=== PATIENT | male | born 1960 | race Caucasian/White ===

== ENCOUNTER 2016-10-26 03:18 | Emergency (ER) | payer MEDICAID ==
[2016-10-26] MEDS ORDERED: ONDANSETRON HCL INJ/PF 4 MG/2 ML SDV IV ONE (03:49)
--- NOTE | 2016-10-26 03:49 | ER Document Report ---
ED General - General Stated Complaint: ABDOMINAL PAIN Time Seen by Provider: 10/26/16 03:26 - HPI Notes: Patient is a 56-year-old male with a history of stage IV cirrhosis, diabetes who presents the ED complaining of abdominal pain 2 days and black stool 2 days. Patient also has associated nausea without any vomiting. Patient states that he still eating and drinking without any difficulties and without any changes in his discomfort. Patient states that he is having bilateral lower abdominal pain. [facility]. Patient states that he is primarily concerned with his black stool and his abdominal pain. Patient states that he has not needed any procedures done to the veins in his esophagus over the last 2 years that they have been fairly stable. 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 Pt states that he is still having normal BM's otherwise and is urinating without any difficulties. Patient states that the pain does not radiate and is described as sharp and achy. Patient admits to smoking but denies any other illicit drug use. Denies any headache, fever, changes in vision/speech/mentation/hearing, URI, sore throat, chest pain, palpitations, syncope, cough, shortness of breath, wheeze, dyspnea, urinary retention, dysuria , hematuria, loss of control of bowel or bladder, numbness/tingling, saddle anesthesia, muscle paralysis/weakness, or rash. - Related Data Allergies/Adverse Reactions: Penicillins Allergy (Verified 10/26/16 04:09) Past Medical History - Social History Smoking Status: Current Every Day Smoker Family History: Reviewed & Not Pertinent Review of Systems - Review of Systems Notes: REVIEW OF SYSTEMS: CONSTITUTIONAL : Denies fever, chills, or sweats. Denies recent illness. EENT: Denies eye, ear, throat, or mouth pain or symptoms. Denies nasal or sinus congestion or discharge. Denies throat, tongue, or mouth swelling or difficulty swallowing. CARDIOVASCULAR: Denies chest pain. Denies palpitations or racing or irregular heart beat. Denies ankle edema. RESPIRATORY: Denies cough, cold, or chest congestion. Denies shortness of breath, difficulty breathing, or wheezing. GASTROINTESTINAL: see hpi GENITOURINARY: Denies difficulty urinating, painful urination, burning, frequency, blood in urine, or discharge. MUSCULOSKELETAL: Denies back or neck pain or stiffness. Denies joint pain or swelling. SKIN: Denies rash, lesions or sores. NEUROLOGICAL: Denies confusion or altered mental status. Denies passing out or loss of consciousness. Denies dizziness or lightheadedness. Denies headache. Denies weakness or paralysis or loss of use of either side. Denies problems with gait or speech. Denies sensory loss, numbness, or tingling. ALL OTHER SYSTEMS REVIEWED AND NEGATIVE. Dictation was performed using [employer] voice recognition software Physical Exam - Vital signs Vitals: Temp Resp BP Pulse Ox 97.5 F 20 138/82 H 97 10/26/16 03:23 10/26/16 03:23 10/26/16 03:23 10/26/16 03:23 Notes: PHYSICAL EXAMINATION: GENERAL: Well-appearing, well-nourished and in no acute distress. HEAD: Atraumatic, normocephalic. EYES: Pupils equal round and reactive to light, extraocular movements intact, sclera anicteric, conjunctiva are normal. ENT: Nares patent and without discharge. oropharynx clear without exudates. No tonsilar hypertrophy or erythema. Moist mucous membranes. No sinus tenderness. NECK: Normal range of motion, supple without lymphadenopathy. No rigidity. LUNGS: Breath sounds clear to auscultation bilaterally and equal. No wheezes rales or rhonchi. HEART: Regular rate and rhythm without murmurs, rubs, gallops. ABDOMEN: Soft, nondistended abdomen. No guarding, no rebound. No masses appreciated. Normal bowel sounds present. No CVA tenderness bilaterally. + tenderness to the lower quadrant and epigastric region. No obvious varices on abdomen. Musculoskeletal: LE's b/l: FROM to passive/active. Strength 5+/5. Extremities: 1+ edema b/l prox to mid lower leg. Peripheral pulses 2+. Capillary refill less than 3 seconds. NEUROLOGICAL: MMSE intact. Cranial nerves grossly intact. Normal speech, normal gait. Normal sensory, motor exams PSYCH: Normal mood, normal affect. SKIN: Warm, Dry, normal turgor, no rashes or lesions noted. Course - Re-evaluation Re-evalutation: 10/26/16 06:11 Patient is an afebrile, well-hydrated, 56-year-old male who presents the ED with abdominal pain and chronic cirrhosis. Vitals are stable. PE otherwise unremarkable at this time. CBC, CMP, urinalysis, lipase, cxr, Hemoccult all unremarkable for acute pathology. See CT scan results. Recommended gallbladder ultrasound to further evaluate for any cholecystitis based on CT, the patient declined stating that he just wants to go home. Patient is aware of the risks and benefits of his decision including worsening infection and/or . Patient signed out AMA after review of the rest of his results. Low suspicion/risk for acute appendicitis, bowel obstruction, perforated diverticulitis, incarcerated hernia, pancreatitis, perforated ulcer, peritonitis , sepsis, or other systemic emergent condition at this time aside from the questionable cholecystitis. Patient is aware that his condition can change from initial presentation and he needs to monitor symptoms closely and seek medical attention if any acute changes. I will send him home with prescription for Zofran and meloxicam. Toradol 15 mg given IV today along with 1 L normal saline, zofran, and 0.5mg ativan. Conservative measures otherwise for symptoms. Recheck with PCM in 2-3 days. Patient states that he does have a follow-up coming on Thursday with his GI doctor. Patient also states that he is scheduled for an ultrasound on . Return to the ED with any worsening/ concerning symptoms otherwise as reviewed in discharge. Patient is in agreement. Reviewed case with Dr. Acosta who is in agreement with discharge/ plan. - Vital Signs Vital signs: Temp Pulse Resp BP Pulse Ox 97.5 F 13 138/82 H 98 10/26/16 03:23 10/26/16 04:03 10/26/16 03:25 10/26/16 04:03 - Laboratory Result Diagrams: 10/26/16 03:28 10/26/16 04:00 Laboratory results interpreted by me: 10/26/16 10/26/16 03:28 04:00 RDW 18.8 H Plt Count 102 L Chloride 113 H BUN 5 L Total Bilirubin 1.8 H Direct Bilirubin 0.5 H AST 69 H Discharge - Discharge Clinical Impression: Abdominal pain Qualifiers: Abdominal location: generalized Qualified Code(s): R10.84 - Generalized abdominal pain Cirrhosis Qualifiers: Hepatic cirrhosis type: alcoholic cirrhosis Ascites presence: with ascites Qualified Code(s): K70.31 - Alcoholic cirrhosis of liver with ascites Condition: Stable Disposition: HOME, SELF-CARE Instructions: Abdominal Pain ([facility]), Antinausea Medication ([facility]), Gallbladder Disease ([facility]), Low-Fat Diet ([facility]) Additional Instructions: Maintain adequate fluid and food intake Take home medications as directed Monitor symptoms closely for any acute changes Recheck with Dr. Boyce on Thursday Return to the ED with any worsening symptoms and/or development of fever, headache, chest pain, palpitations, syncope, shortness of breath, trouble breathing, abdominal pain, n/v/d, blood in stool/urine, loss of control of bowel /bladder, urinary retention, muscle weakness/paralysis, saddle anesthesia, numbness/tingling, or other worsening symptoms that are concerning to you. Prescriptions: Meloxicam 7.5 mg PO BID PRN #20 tablet PRN Reason: Ondansetron [Zofran Odt 4 mg Tablet] 1 - 2 tab PO Q4H PRN #15 tab.rapdis PRN Reason: For Nausea/Vomiting Forms: Elevated Blood Pressure Referrals: HEATHER BOYCE MD [NO LOCAL MD] - 10/27/16
[2016-10-26 03:54] LABS: ABSOLUTE EOSINOPHILS # (AUTO) 0.1 10^3/uL (0.0-0.6); ABSOLUTE LYMPHOCYTES (AUTO) 1.5 10^3/uL (0.5-4.7); ABSOLUTE MONOCYTES (AUTO) 0.5 10^3/uL (0.1-1.4); BASOPHILS % (AUTO) 0.6 % (0-2); EOSINOPHILS % (AUTO) 1.9 % (0-6); HEMATOCRIT 46.2 % (37.9-51.0); HEMOGLOBIN 15.8 g/dL (13.5-17.0); HGB HCT DIFFERENCE 1.2; LYMPHOCYTES % (AUTO) 29.2 % (13-45); MEAN CORPUSCULAR HEMOGLOBIN 31.3 pg (27.0-33.4); MEAN CORPUSCULAR HGB CONC 34.3 g/dL (32.0-36.0); MEAN CORPUSCULAR VOLUME 91 fl (80-97); MONOCYTES % (AUTO) 9.7 % (3-13); RED BLOOD COUNT 5.06 10^6/uL (4.35-5.55); RED CELL DISTRIBUTION WIDTH 18.8 % (11.5-14.0); SEGMENTED NEUTROPHILS % (AUTO) 58.6 % (42-78); WHITE BLOOD COUNT 5.1 10^3/uL (4.0-10.5)
[2016-10-26] MEDS ORDERED: LORAZEPAM INJ 2 MG/1 ML VIAL IV ONE (04:17)
[2016-10-26 04:22] LABS: APPEARANCE,URINE CLEAR; BILIRUBIN,URINE NEGATIVE (NEGATIVE); GLUCOSE, URINE NEGATIVE (NEGATIVE); KETONES,URINE NEGATIVE (NEGATIVE); LEUKOCYTE ESTERASE,URINE NEGATIVE (NEGATIVE); NITRITE,URINE NEGATIVE (NEGATIVE); PROTEIN,URINE NEGATIVE (NEGATIVE); URINE SPECIFIC GRAVITY 1.004; UROBILINOGEN,URINE NEGATIVE mg/dL (<2.0)
[2016-10-26 04:36] LABS: ALANINE AMINOTRANSFERASE 55 U/L (21-72); ALBUMIN 3.5 g/dL (3.5-5.0); ALKALINE PHOSPHATASE 77 U/L (38-126); ANION GAP 6 (5-19); ASPARTATE AMINO TRANSFERASE 69 U/L (17-59); BILIRUBIN,DIRECT 0.5 mg/dL (0.0-0.4); BILIRUBIN,TOTAL 1.8 mg/dL (0.2-1.3); BLOOD UREA NITROGEN 5 mg/dL (7-20); CALCIUM 9.3 mg/dL (8.4-10.2); CARBON DIOXIDE 22 mmol/L (22-30); CHLORIDE 113 mmol/L (98-107); CREATININE RESULT 0.62 mg/dL (0.52-1.25); GLUCOSE 99 mg/dL (75-110); LIPASE 72.6 U/L (23-300); POTASSIUM 3.7 mmol/L (3.6-5.0); SODIUM 141.4 mmol/L (137-145); TOTAL PROTEIN 6.6 g/dL (6.3-8.2)
[2016-10-26 05:00] LABS: PROTHROMBIN TIME 14.1 SEC (11.4-15.4)
--- NOTE | 2016-10-26 05:40 | RADIOLOGY REPORT (SQ) ---
EXAM DESCRIPTION: CT ABD/PELVIS WITH IV ONLY COMPLETED DATE/TIME: 10/26/2016 5:04 am REASON FOR STUDY: abdominal pain, h/o stage 4 cirrhosis . Abdominal pain and black stools x2 days. Nausea. Lower quadrants abdominal pain. COMPARISON: Abdominal series 06/11/2010. TECHNIQUE: CT scan of the abdomen and pelvis performed using helical scanning technique with dynamic intravenous contrast injection. No oral contrast. Images reviewed with lung, soft tissue, and bone windows. Reconstructed coronal and sagittal MPR images reviewed. Delayed images for evaluation of the urinary system also acquired. All images stored on PACS. All CT scanners at this facility use dose modulation, iterative reconstruction, and/or weight based d osing when appropriate to reduce radiation dose to as low as reasonably achievable (ALARA). [facility]: Dose Right [facility]: CareDose [facility]: Dose Right [facility]: Teradose 4D [facility]: [employer] CONTRAST TYPE AND DOSE: contrast/concentration: Isovue 370.00 mg/ml; Total Contrast Delivered: 100.0 ml; Total Saline Delivered: 72.0 ml RENAL FUNCTION: Creatinine 0.62 RADIATION DOSE: Up-to-date CT equipment and radiation dose reduction techniques were employed. CTDIv ol: 20.4 - 21.1 mGy. DLP: 2407 mGy-cm.. LIMITATIONS: Streak artifact from the bilateral hip prosthesis. FINDINGS: LOWER CHEST: No consolidation or pleural effusion. Coronary arteries calcifications are n oted. LIVER: Nodular contour of the liver, consistent with cirrhosis. There is periportal adenopathy with lymph nodes measuring up to 13 mm in short axis. SPLEEN: Enlarged measuring 16.5 cm in craniocaudal dimension. PANCREAS: No significant calcifications. No adjacent inflammation or peripancreatic fluid collections . Pancreatic duct not dilated. GALLBLADDER: The gallbladder is partially distended. There is cholelithiasis. There is gallbladder wall thickening. ADRENAL GLANDS: No significant masses or asymmetry. RIGHT KIDNEY AND URETER: There is a 1.6 cm cortical exophytic cyst at the inferior pole of the right kidney. No significant calcifications. No hydronephrosis or hydroureter. LEFT KIDNEY AND URETER: No significant calcifications. No hydronephrosis or hydroureter. AORTA AND VESSELS: No abdominal aortic aneurysm. There are multiple mesenteric collaterals. There i s recanalization of the umbilical ligament. RETROPERITONEUM: No retroperitoneal hemorrhage or masses. BOWEL AND PERITONEAL CAVITY: No dilated bowel loops or inflammatory changes. No free fluid or free a ir. APPENDIX: Not visualized. PELVIS: There is streak artifact from the bilateral hip prostheses. The urinary bladder is distended . No obvious mass or free fluid. ABDOMINAL WALL: There is diastasis recti. There is a small umbilical hernia with a segment of nondil ated bowel protruding into the hernia defect. BONES: The patient is status post total bilateral hip replacement. Mild multilevel degenerative guillaume ges are seen in the spine. IMPRESSION: Cirrhosis with splenomegaly and portal hypertension. Mild periportal adenopathy. Cholelithiasis. Gallbladder wall thickening, may be secondary to underdistention, adjacent liver dis ease or acute cholecystitis. Please correlate with clinical exam/laboratory values. Small umbilical hernia with a segment of nondilated bowel protruding into the hernia defect. TECHNICAL DOCUMENTATION: JOB ID: [id number] OH-64 Quality ID # [id number]: Final reports with documentation of one or more dose reduction techniques (e.g., Au tomated exposure control, adjustment of the mA and/or kV according to patient size, use of iterative reconstruction technique) 2010 [employer]- All Rights Reserved
--- NOTE | 2016-10-26 05:45 | RADIOLOGY REPORT (SQ) ---
EXAM DESCRIPTION: CHEST PA/LAT COMPLETED DATE/TIME: 10/26/2016 5:19 am REASON FOR STUDY: epigastric/abdominal pain COMPARISON: Abdominal series 06/11/2010, CT abdomen and pelvis 10/26/2016. EXAM PARAMETERS: NUMBER OF VIEWS: two views TECHNIQUE: Digital Frontal and Lateral radiographic views of the chest acquired. RADIATION DOSE: NA LIMITATIONS: none FINDINGS: LUNGS AND PLEURA: No consolidation, pneumothorax or pleural effusion. MEDIASTINUM AND HILAR STRUCTURES: No masses or contour abnormalities. HEART AND VASCULAR STRUCTURES: Heart normal size. No evidence for failure. BONES: No acute findings. HARDWARE: None in the chest. IMPRESSION: No acute radiographic finding in the chest. TECHNICAL DOCUMENTATION: JOB ID: [id number] OH-64 2010 [employer]- All Rights Reserved
[2016-10-26] MEDS ORDERED: KETOROLAC TROMETHAMINE INJ/PF 30 MG/1 ML SDV IV ONE (06:10)
[2016-10-26 06:51] VITALS: BP 132/72
== END 2016-10-26 06:51 | disposition home or self-care (01) ==
LOC: ER 03:18
DX: K70.31 Alcoholic cirrhosis of liver with ascites (principal); R10.84 Generalized abdominal pain; E11.9 Type 2 diabetes mellitus without complications; R19.5 Other fecal abnormalities; R11.0 Nausea; F17.200 Nicotine dependence, unspecified, uncomplicated; Z53.20 Procedure and treatment not carried out because of patient's decision for unspecified reasons
CPT/HCPCS: 99284; 36415; 82140; 83690; 83735; 85025; 85610; 82272; 80053; 81001; 71020; 74177; J1885; J2060; J2405

== ENCOUNTER 2017-05-15 12:15 | Emergency (ER) | payer MEDICAID ==
[2017-05-15] MEDS ORDERED: NORMAL SALINE 1000 ML 500 ML IV ONE (12:39)
[2017-05-15] MEDS ORDERED: HYDROCODONE/ACETAMINOPHEN 5-325 MG TABLET PO ONE (12:40)
--- NOTE | 2017-05-15 12:42 | ER Document Report ---
ED Medical Screen (RME) - General Chief Complaint: Post Surgical Pain Stated Complaint: RIGHT FOOT PAIN Notes: RME DISCLOSURE I have seen this patient as part of a Rapid Medical Evaluation and, if applicable, placed any initially appropriate orders. The patient will be seen and fully evaluated, including a full history and physical exam, by a provider ( in Main ED or Fast Track) when a room becomes available. 56-year-old male here with complaints of progressively worsening right foot pain and redness that has been ongoing for several months now but worse over the past 1-2 weeks. He reports that he had some pins placed by an orthopedic doctor and [place] [facility] and had x-rays performed several weeks ago as well as an ultrasound 2 months ago that did not show blood clot. He is here because the tramadol is not helping with his pain and he also reports some fevers though unmeasured. He reports the swelling in his right leg is the same as it was from after the accident and "they have checked me for blood clots". He does not know why his heart rate is so high and it is not normally high. EXAM Mild to moderate tachycardia low 110s TRAVEL OUTSIDE OF THE [place] IN LAST 30 DAYS: No - Related Data Allergies/Adverse Reactions: Penicillins Allergy (Verified 05/15/17 12:33) Past Medical History - Social History Chew tobacco use (# tins/day): No Frequency of alcohol use: None Drug Abuse: None Endocrine Medical History: Reports: Hx Diabetes Mellitus Type 1 Renal/ Medical History: Denies: Hx Peritoneal Dialysis GI Medical History: Reports: Hx Gastroesophageal Reflux Disease Past Surgical History: Reports: Hx Orthopedic Surgery - BILATERAL HIPS Physical Exam - Vital signs Vitals: Temp Pulse Resp BP Pulse Ox 98.5 F 111 H 18 189/93 H 96 05/15/17 12:22 05/15/17 12:22 05/15/17 12:22 05/15/17 12:22 05/15/17 12:22 Course - Vital Signs Vital signs: Temp Pulse Resp BP Pulse Ox 98.5 F 111 H 18 189/93 H 96 05/15/17 12:22 05/15/17 12:22 05/15/17 12:22 05/15/17 12:22 05/15/17 12:22
[2017-05-15 13:17] LABS: ABSOLUTE BASOPHILS # (AUTO) 0.1 10^3/uL (0.0-0.2); ABSOLUTE EOSINOPHILS # (AUTO) 0.4 10^3/uL (0.0-0.6); ABSOLUTE LYMPHOCYTES (AUTO) 2.1 10^3/uL (0.5-4.7); ABSOLUTE MONOCYTES (AUTO) 0.6 10^3/uL (0.1-1.4); ABSOLUTE NEUT (AUTO) 5.6 10^3/uL (1.7-8.2); BASOPHILS % (AUTO) 0.6 % (0-2); EOSINOPHILS % (AUTO) 4.4 % (0-6); HEMOGLOBIN 16.9 g/dL (13.5-17.0); LYMPHOCYTES % (AUTO) 23.9 % (13-45); MEAN CORPUSCULAR HEMOGLOBIN 32.2 pg (27.0-33.4); MEAN CORPUSCULAR HGB CONC 35.1 g/dL (32.0-36.0); MEAN CORPUSCULAR VOLUME 92 fl (80-97); MONOCYTES % (AUTO) 7.1 % (3-13); PLATELET COUNT 144 10^3/uL (150-450); RED BLOOD COUNT 5.25 10^6/uL (4.35-5.55); RED CELL DISTRIBUTION WIDTH 17.2 % (11.5-14.0); TOTAL CELLS COUNTED % (AUTO) 100 %; WHITE BLOOD COUNT 8.8 10^3/uL (4.0-10.5)
--- NOTE | 2017-05-15 13:27 | RADIOLOGY REPORT (SQ) ---
EXAM DESCRIPTION: FOOT RIGHT COMPLETE COMPLETED DATE/TIME: 05/15/2017 1:17 pm REASON FOR STUDY: eval osteo and hardware COMPARISON: None. NUMBER OF VIEWS: Three views. TECHNIQUE: AP, lateral and oblique radiographic images acquired of the right foot. LIMITATIONS: None. FINDINGS: MINERALIZATION: Normal. BONES: There appears to be a fracture of the calcaneus versus an osteotomy which is reduced by the pr esence of 2 long cannulated screws. No acute osteomyelitis is suggested. The longer of the 2 screws extends beyond the bone as seen on the oblique view. JOINTS: No effusions. SOFT TISSUES: No soft tissue swelling. No foreign body. OTHER: No other significant finding. IMPRESSION: Findings as described. No acute abnormality is seen. TECHNICAL DOCUMENTATION: JOB ID: [id number] [employer]- All Rights Reserved Reading location - IP/workstation name: [email or web address]
[2017-05-15 13:34] LABS: ANION GAP 11 (5-19); BLOOD UREA NITROGEN 8 mg/dL (7-20); CALCIUM 9.3 mg/dL (8.4-10.2); CARBON DIOXIDE 23 mmol/L (22-30); CHLORIDE 107 mmol/L (98-107); GLUCOSE 104 mg/dL (75-110); SODIUM 140.8 mmol/L (137-145)
--- NOTE | 2017-05-15 13:54 | ER Document Report ---
HPI - HPI Patient complains to provider of: r foot pain Onset: Other - 2 wks Onset/Duration: Persistent Quality of pain: Achy Pain Level: 3 Context: Patient has a history of right foot fracture with surgical repair in January of last year. Patient has followed up with his orthopedic surgeon on several occasions most recently 2 weeks ago. Patient states that he has had hardware failure involving the screws in his right foot. Patient suspects that he will likely have to have repeat surgery. Patient denies any new injury. Patient states he is visiting here due to a recent in the family. Patient complains of increased pain over the past 2 weeks and is requesting pain medication to help him get through the weekend so that he can see his orthopedic surgeon on Thursday for recheck. Associated Symptoms: Other - Right foot pain Exacerbated by: Movement, Walking Relieved by: Denies Similar symptoms previously: Yes Recently seen / treated by doctor: Yes - ROS ROS below otherwise negative: Yes Systems Reviewed and Negative: Yes All other systems reviewed and negative - CONSTITUTIONAL Constitutional: DENIES: Fever - NEURO Neurology: DENIES: Headache - CARDIOVASCULAR Cardiovascular: DENIES: Chest pain - RESPIRATORY Respiratory: DENIES: Trouble Breathing, Coughing - GASTROINTESTINAL Gastrointestinal: DENIES: Nausea, Patient vomiting - MUSCULOSKELETAL Musculoskeletal: REPORTS: Extremity pain, Swelling. DENIES: Back Pain - DERM Skin Color: Normal Skin Problems: None Past Medical History - General Information source: Patient - Social History Smoking Status: Current Every Day Smoker Chew tobacco use (# tins/day): No Frequency of alcohol use: None Drug Abuse: None Lives with: Family Family History: Reviewed & Not Pertinent Patient has suicidal ideation: No Patient has homicidal ideation: No Endocrine Medical History: Reports: Hx Diabetes Mellitus Type 1 Renal/ Medical History: Denies: Hx Peritoneal Dialysis GI Medical History: Reports: Hx Cirrhosis, Hx Gastroesophageal Reflux Disease Past Surgical History: Reports: Hx Orthopedic Surgery - BILATERAL HIPS Vertical Provider Document - CONSTITUTIONAL Agree With Documented VS: Yes Exam Limitations: No Limitations General Appearance: WD/WN, No Apparent Distress - INFECTION CONTROL TRAVEL OUTSIDE OF THE [place] IN LAST 30 DAYS: No - HEENT HEENT: Atraumatic, Normocephalic - NECK Neck: Normal Inspection, Supple - RESPIRATORY Respiratory: Breath Sounds Normal, No Respiratory Distress, Chest Non-Tender O2 Sat by Pulse Oximetry: 96 - CARDIOVASCULAR Cardiovascular: Regular Rhythm, No Murmur, Tachycardia Pulses: Normal: Dorsalis pedis - MUSCULOSKELETAL/EXTREMETIES Musculoskeletal/Extremeties: MAEW, Tender - Foot and ankle tenderness - NEURO Level of Consciousness: Awake, Alert, Appropriate Motor/Sensory: No Motor Deficit - DERM Integumentary: Warm Course - Re-evaluation Re-evalutation: 05/15/17 14:[address] Wilcox regarding patient x-ray as well as laboratory reports. Agrees with plan to splint him, advises given a short course of pain medication and having patient to see his orthopedic doctor on Thursday for recheck. 05/15/17 14:27 Patient refused IV fluids stating that he is able to take oral fluids without difficulty. Patient states his primary concern was about possible infection in his leg. Patient states that if he is not having any infection he plans to just follow up with his surgeon Thursday or Thursday. Patient refuses any IV fluids at this time 05/15/17 14:57 Patient continues tachycardic 112 heart rate in discharge. Patient states that his heart rate is up because he has a lot of stress involving a recent in the family which prompted him to come to [place] today. Patient denies any chest pain, dyspnea symptoms. Patient states that he only wants to be certain he does not have an infection and to see about getting pain medication for his foot. - Vital Signs Vital signs: Temp Pulse Resp BP Pulse Ox 98.5 F 111 H 18 189/93 H 96 05/15/17 12:22 05/15/17 12:22 05/15/17 12:22 05/15/17 12:22 05/15/17 12:22 - Laboratory Result Diagrams: 05/15/17 12:48 05/15/17 12:48 Laboratory results interpreted by me: 05/15/17 12:48 RDW 17.2 H Plt Count 144 L 05/15/17 14:18 Labs- Entire Visit 05/15/17 05/15/17 12:48 12:48 WBC 8.8 RBC 5.25 Hgb 16.9 Hct 48.0 MCV 92 MCH 32.2 MCHC 35.1 RDW 17.2 H Plt Count 144 L Seg Neutrophils % 64.0 Lymphocytes % 23.9 Monocytes % 7.1 Eosinophils % 4.4 Basophils % 0.6 Absolute Neutrophils 5.6 Absolute Lymphocytes 2.1 Absolute Monocytes 0.6 Absolute Eosinophils 0.4 Absolute Basophils 0.1 ESR 10 Sodium 140.8 Potassium 4.0 Chloride 107 Carbon Dioxide 23 Anion Gap 11 BUN 8 Creatinine 0.58 Est GFR ( Amer) > 60 Est GFR (Non-Af Amer) > 60 Glucose 104 Calcium 9.3 - Diagnostic Test Radiology reviewed: Reports reviewed Procedures - Immobilization Right Foot Pre-Proc Neuro Vasc Exam: Normal Immobilizer type: Posterior ankle Performed by: PCT Post-Proc Neuro Vasc Exam: Normal Alignment checked and good: Yes Discharge - Discharge Clinical Impression: Right foot pain, Hx of fracture of foot, Hx of essential hypertension Condition: Stable Disposition: HOME, SELF-CARE Instructions: Foot Fracture ([facility]), Oral Narcotic Medication ([facility]), Splint Precautions ([facility]) Additional Instructions: Return immediately for any new or worsening symptoms Followup with your primary care provider, call tomorrow to make a followup appointment Follow-up with your orthopedic surgeon, Dr Padgett, for recheck. Call today to make an appointment for early next week. Nonweightbearing to your right foot do not take the pain medication if you are taking your xanax. Do not mix these medications together Prescriptions: Oxycodone HCl [Oxy-Ir 5 mg Tablet] 5 mg PO Q6 PRN #12 tab PRN Reason: Walker [Folding Walker] 1 each MC ASDIR PRN #1 each PRN Reason: Forms: Elevated Blood Pressure
[2017-05-15 14:03] LABS: ERYTHROCYTE SEDIMENTATION RATE 10 mm/hr (0-20)
[2017-05-15 14:59] VITALS: BP 163/98
== END 2017-05-15 15:00 | disposition home or self-care (01) ==
LOC: ER 12:15
PROC: 2W3QX1Z Immobilization of Right Lower Leg using Splint (ICD-10-PCS; principal; 2017-05-15)
DX: M79.671 Pain in right foot (principal); R00.0 Tachycardia, unspecified; F17.200 Nicotine dependence, unspecified, uncomplicated; E10.9 Type 1 diabetes mellitus without complications; K21.9 Gastro-esophageal reflux disease without esophagitis; Z98.890 Other specified postprocedural states
CPT/HCPCS: 36415; 80048; 85025; 85652; 87040; 99284